=== PATIENT | male | born 1950 | race Caucasian/White ===

== ENCOUNTER → 2018-07-23 10:53 | Outpatient (CLI) | payer MEDICARE, OTHER, SELFPAY ==
--- NOTE | 2018-07-23 | DI.US.S_ITS ---
PROCEDURE: US ABDOMEN COMPLETE INDICATIONS: Abnormal results of liver function studies TECHNIQUE: Real-time scanning was performed of the abdominal and retroperitoneal organs, with image documentation. COMPARISON: None. FINDINGS: Liver: Diffusely echogenic appearance. 1.1 x 0.8 x 0.7 cm septated cystic structure or a closely apposed cysts. Gallbladder: Not well-visualized. Possible gallbladder sludge however technically indeterminate. No definite gallbladder wall thickening. No pericholecystic fluid or sonographic Rodas sign. Biliary ducts: Intrahepatic bile ducts are non-dilated. Extrahepatic bile duct caliber measures 5 mm. Normal is 6-7 mm or less in diameter, or 10 mm or less post-cholecystectomy. Pancreas: Pancreas is not well visualized. Spleen: Spleen is normal in size and homogeneous in echotexture. Kidneys: Kidneys are normal in size and echotexture. Right kidney measures 12.2 cm long; left kidney measures 11.5 cm long. No hydronephrosis or nephrolithiasis. No solid masses. Aorta: Visualized aorta is normal in caliber at less than 3 cm. of the proximal segment is obscured by shadowing bowel gas Iliacs: Proximal common iliac arteries are normal in caliber at less than 2.5 cm. IVC: Intrahepatic inferior vena cava is patent. Miscellaneous: No free abdominal fluid. IMPRESSION: Possible gallbladder sludge although technically indeterminate and limited evaluation. No other sonographic criteria for acute cholecystitis. Coarse echogenic liver suggesting diffuse hepatocellular disease/fatty infiltration. Please correlate with LFTs. Probable septated versus multiple closely apposed small hepatic cysts. Dictated by: James Aguilar M.D. on 07/23/2018 at 12:08 Approved by: James Aguilar M.D. on 07/23/2018 at 12:11
== END ==
PROVIDERS: Visit Provider Physician Assistant
DX: R94.5 Abnormal results of liver function studies (principal)
CPT/HCPCS: 76700

== ENCOUNTER → 2021-10-11 14:54 | Outpatient (CLI) | payer MEDICARE, OTHER, SELFPAY ==
[2021-10-11 16:04] LABS: Add Manual Diff / Slide Review NO; Basophils Absolute Auto 100 /uL (0-100); Basophils Percent Auto 0.8 % (0-2); Eosinophils Absolute Auto 300 /uL (0-450); Eosinophils Percent Auto 4.4 % (2-4); Hemoglobin 13.4 g/dL (13.5-17.5); Lymphocytes Absolute Auto 2500 /uL (1100-4500); Lymphocytes Percent Auto 38.5 % (25-40); Mean Corpuscular HGB Conc 34.3 % (30-36); Mean Corpuscular Hemoglobin 31.2 PG (26-34); Mean Corpuscular Volume 91.1 fL (80-100); Monocytes Absolute Auto 700 /uL (0-900); Monocytes Percent Auto 10.1 % (3-14); Neutrophils Absolute Auto 3000 /uL (1500-7000); Neutrophils Percent Auto 46.2 % (50-75); Platelet Count 155 X10^3/uL (150-400); Red Blood Cell Count 4.28 X10^6/uL (4.5-5.9); Red Cell Distribution Width 13.8 % (11.6-14.8); White Blood Cell Count 6.6 X10^3/uL (4.5-11.0)
[2021-10-11 16:12] LABS: BUN Creatinine Ratio 17.9 (6-22); Blood Urea Nitrogen 17 mg/dL (9-20); Calcium 9.3 mg/dL (8.4-10.2); Carbon Dioxide 28 mmol/L (22-32); Chloride 103 mmol/L (98-107); Estimated Glomerular Filt Rate > 60 mL/min (>60); Glucose 101 mg/dL (80-110); HEMOLYSIS 18 (0-50); Potassium 4.2 mmol/L (3.4-5.1); Sodium 136 mmol/L (137-145)
[2021-10-11 16:37] LABS: Hemoglobin A1C% w Est Avg Glu 5.5 % (4.0-6.0)
== END ==
PROVIDERS: Referring Provider Orthopaedic Surgery; Visit Provider Orthopaedic Surgery
DX: Z01.818 Encounter for other preprocedural examination (principal); R73.9 Hyperglycemia, unspecified; Z01.812 Encounter for preprocedural laboratory examination
CPT/HCPCS: 36415; 80048; 83036; 85025; 93005; 93010

== ENCOUNTER → 2021-10-29 09:57 | Outpatient (CLI) | payer MEDICARE, OTHER, SELFPAY ==
[2021-10-29 11:29] LABS: COVID19 -Nasal RAPID Negative (Negative)
== END ==
PROVIDERS: Referring Provider Orthopaedic Surgery; Visit Provider Orthopaedic Surgery
DX: Z20.822 Contact with and (suspected) exposure to COVID-19 (principal)
CPT/HCPCS: 87635; C9803

== ENCOUNTER 2021-10-31 07:02 | Day surgery (SDC) | payer MEDICARE, OTHER, SELFPAY ==
[2021-10-05 12:50] VITALS: BMI 29.8
[2021-10-31] VITALS (14 sets, daily range): BP systolic 130–152; BP diastolic 70–90; PULSE 58–86; RESP 11–18; TEMP 35.5–36.9; O2SAT 93–99; BMI 29.8
--- NOTE | 2021-10-31 07:30 | DI.RAD.S_ITS ---
PROCEDURE: XR SHOULDER RT 1V INDICATIONS: prosthesis placement TECHNIQUE: Single views of the shoulder were acquired. COMPARISON: None. FINDINGS: Bones: Right humeral hardware replacement. Soft tissues: Postoperative changes are present. Low lung volume. IMPRESSION: Postoperative changes from right shoulder hemiarthroplasty. Dictated by: Jose Cameron M.D. on 10/31/2021 at 16:04 Approved by: Jose Cameron M.D. on 10/31/2021 at 16:05
[2021-10-31] MEDS: LACTATED RINGERS 1,000 ML 42 ML IV (08:28)
--- NOTE | 2021-10-31 11:28 | PM.PREOP ---
Pre-operative Note COVID-19 COVID-19 status: Negative Result date/Date tested (Pos, Neg/Pending): 10/29/21 Interval Note History & Physical reviewed/Exam performed by Physician: Yes Changes to H&P: No
[2021-10-31] MEDS: ACETAMINOPHEN 325 MG TABLET 975 MG PO (13:11)
[2021-10-31] MEDS: CELECOXIB 200 MG CAPSULE PO (13:11)
[2021-10-31] MEDS: PREGABALIN 75 MG CAPSULE PO (13:11)
[2021-10-31] MEDS: TRANEXAMIC ACID 1,000 MG VIAL 1000 MG INJ ×2 (13:52→15:14)
[2021-10-31] MEDS: BUPIVACAINE 0.5% (PF) 30 ML, EPINEPHrine 0.15 MG INJ (14:00)
--- NOTE | 2021-10-31 14:10 | PM.PROC.1 ---
Procedures Date/Time Date of procedure: 10/31/21 Time of procedure: 13:10 General Procedure description: Ultrasound guided interscalene brachial plexus nerve block for post op pain control after right total shoulder arthroplasty by Dr. Treviño. Risk and benefits of procedure discussed with patient. ASA monitoring applied to patient. O2 given via nasal cannula. 2 mg Versed and 50 mcg fentanyl given for procedural sedation. Skin site was prepped with chlorhexidine and allowed to fully dry. Sterile gloves, mask, hat and probe cover were used to maintain sterility. 2% lidocaine and 30ga needle was used to make a small skin wheal at needle insertion site. Under ultrasound guidance, a 21ga 50mm Pajunk needle was directed into the interscalene groove (middle/anterior scalenes) near the brachial plexus. Patient reported no parasthesias. After negative aspiration, 20 mL 0.5% ropivicaine and 10mg dexamethasone were injected around brachial plexus. Patient tolerated procedure well.
--- NOTE | 2021-10-31 14:26 | SUR.OPER ---
Beach chair with Abbe/Michael shoulder positioner. Lower body on padded OR bed. Head in foam padded head cradle, secured with straps. Non-operative arm secured <90 degrees abduction. Pillow under knees. Safety belt at thigh. Cloth tape over blanket over lower legs. POSITION APPROVED BY SURGEON AND ANESTHESIA
--- NOTE | 2021-10-31 15:44 | PM.OP.1 ---
Operative Date/Time/Diagnoses Date of procedure: 10/31/21 Time of procedure: 15:44 Pre-op diagnosis: Right shoulder osteoarthritis Post-op diagnosis: same Procedure & Clinicians Procedure: Right total shoulder replacement Same procedure as scheduled: Yes Indications: The patient has had progressively worsening right shoulder pain with radiographic changes consistent with arthritis. Non-operative management has failed and the patient has requested total shoulder replacement. The risks, benefits and alternatives to surgery were discussed with the patient prior to proceeding. Risks discussed included, but were not limited to, failure to relieve pain, stiffness, infection, nerve damage, deep venous thrombosis, pulmonary embolism, stroke, coma, heart attack, permanent paralysis and , as well as the potential need for eventual revision of the prosthetic. Surgeon: Jovan Treviño Horseshoer: Brittni Martinez Click Yes if Unassisted: No Anesthesia Type: General, Peripheral nerve block and Local Operative Notes Findings: Severe osteoarthritis and large loose body which was removed. Closure Type: primary Specimen(s): none sent Prosthetic devices, grafts, tissues, transplants, or devices: Implants used in this procedure were manufactured by the [email or web address] and included a canal sparing total shoulder replacement with a size 2 stem, a 50 mm pegged all polyethylene E +glenoid and a 50 mm x 18 mm neutral humeral head. Applied: implant(s) Estimated Blood Loss (mL): 100 Blood products transfused: none Procedure in detail: The patient was seen in the pre-operative area, where the patient identified the right shoulder as the operative site and this was marked with my initials. The patient received pre-operative antibiotics, underwent an interscalene block, and was taken to the operating room and placed on the operative table in the supine position. After satisfactory anesthesia, a full ?time out? was performed. The patient was repositioned in the ?beach chair? position using a dedicated positioner. All pressure points were well padded, and the knees were slightly bent to prevent tension on the sciatic nerves. The right arm was prepared from the fingers to the base of the neck with ChloroPrep in the usual fashion and draped through sterile drapes. An approximately 15 cm incision was created, starting at the clavicle above the coracoid process and extended towards the deltoid insertion. The deltopectoral interval was used to access the shoulder. The cephalic vein was taken laterally. A self retaining retractor was placed. The upper centimeter of the pectoralis major tendon was released. The ?three sisters? were identified and cauterized. The axillary nerve was palpated and protected throughout the case. The biceps was released from its groove and tenodesed over the top of the pectoralis major tendon. The subscapularis was released from the lesser tuberosity with a subscapularis tenotomy and tagged for later repair. The shoulder was dislocated and a cutting guide was used for the proximal humeral osteotomy in 30 degrees of retroversion. A humeral head trial was used to place a guide pin in the center of the proximal humerus, this was over reamed with the collared Reamer and a size 2 broach placed. A proximal humeral protector was then placed. We then removed the self-retaining retractor and placed retractors to access the glenoid. The subscapularis was released with a ?360 degree release? with care being taken to protect the axillary nerve with the inferior portion of this procedure. The remnant of labrum and biceps stump were removed. The appropriate size reamer was chosen with the glenoid sizer, and the guide pin placed. The glenoid was appropriately reamed with high side reaming due to a B2 biconcave appearance. The guide for the peripheral holes was used and the center hole enlarged. The trial glenoid was placed with good stability. We then cemented the final implant into place after irrigating the peg holes and drying them with thrombin-soaked Gelfoam. We returned our attention to the humerus, a trial humeral head was applied and a trial reduction performed. Stability was checked with 50% posterior translation with spontaneous reduction, 45? external rotation at the side with the subscapularis held in the repaired position and approximately 70? of internal rotation in the ?[place] position?. This was felt to be satisfactory and the appropriate implants were opened. Five holes were drilled along the humeral osteotomy and #2 Ethibond sutures placed for eventual subscapularis repair. The humeral prosthetic was impacted into the humerus after placing the sutures through the outer ring. The humeral head was applied when the stem was still slightly proud and impacted to both seat the head and fully seat the stem. The joint was relocated one final time. The joint was irrigated and the subscapularis repaired to the previously placed sutures using Ba-Holland sutures. The top of the subscapularis was closed to the leading edge of the supraspinatus with a figure of 8 #2 Ethibond to close the rotator interval. The deltopectoral interval was closed with interrupted 0 Vicryl. The subcutaneous layer was closed with 3-0 Vicryl, and the skin with a running 3-0 V-Lock suture and SteriStrips. An Aquacel Ag dressing was applied, the patient?s arm was placed in a sling, and the patient was taken to recovery having tolerated the procedure well. A skilled assistant hairstylist was necessary for this procedure to proceed expediently. The services of Ms. Martinez made exposure of the glenoid possible for glenoid implantation. Without her assistance the procedure would have taken much longer and would be considerably more difficult. Complications: none Post-operative Condition: stable Disposition: PACU Plan for aftercare: The patient will maintained on a standard total shoulder replacement protocol with passive range of motion in front of his body below shoulder level. He may lift 1-2 lb with his elbow for activities of daily living. He may do pendulum exercises. Will be discharged tomorrow with follow-up in my office in 10-14 days.
--- NOTE | 2021-10-31 16:24 | SUR.PHASEI ---
Pt transferred to room 212 with SBAR report from Sander COOK. Bed in low position, call light in reach, denied pain and any difficulty breathing, tolerating water. Pt transferred with phone, belongings bag and CPAP machine.
[2021-10-31] MEDS: LACTATED RINGERS 1,000 ML 100 ML IV (16:31)
[2021-10-31] MEDS: ACETAMINOPHEN 325 MG TABLET 650 MG PO (17:10)
[2021-10-31] MEDS: IBUPROFEN 400 MG TABLET PO ×2 (17:10→20:25)
[2021-10-31] MEDS: ASPIRIN EC 81 MG TABLET PO (20:25)
[2021-10-31] MEDS: ATORVASTATIN 20 MG TABLET PO (20:25)
[2021-10-31] MEDS: DOCUSATE 100 MG CAPSULE PO (20:25)
--- NOTE | 2021-10-31 21:23 | PC.NURSE ---
Patient is alert and oriented. Breath sounds CTA with RA sat of 96%. HRR. BP trending elevated but stable at 145/71. Denies nausea. BT present and is passing flatus. Able to void at start of shift and denied dysuria. Is able to move self in bed and is out of bed with SBA. Aquacel dressing to right shoulder is CDI; arm is in sling. Entire right UE is numb but has good radial pulse and able to move fingers. Denies pain. Is wearing bilateral calf SCD's. Fall risk score is moderate but patient agreeable to calling for assistance when getting up so alarm is not activated at this time.
[2021-11-01] MEDS: IBUPROFEN 400 MG TABLET PO ×3 (00:30→09:00)
[2021-11-01] MEDS: ACETAMINOPHEN 325 MG TABLET 650 MG PO ×2 (00:30→05:28)
[2021-11-01 04:11] VITALS: BP 134/74; PULSE 80; RESP 18; TEMP 36.1; O2SAT 99
[2021-11-01 06:13] LABS: Hematocrit 36.7 % (41-53); Hemoglobin 12.9 g/dL (13.5-17.5)
[2021-11-01 07:43] VITALS: BP 148/77; PULSE 65; RESP 16; TEMP 36.4; O2SAT 94
--- NOTE | 2021-11-01 08:04 | P.DS_ITS ---
History of Present Illness History of Present Illness Date Patient Seen: 11/01/21 Time Patient Seen: 08:04 Chief complaint: OPB Narrative: Patient is complaining of no right shoulder pain this morning. He is using Tylenol and ibuprofen. He is on aspirin for DVT prophylaxis. His main concern is that his right arm is still numb and tingly. This is resolving somewhat, but is throughout all 5 fingers. Otherwise he is feeling well and would like to be discharged home today. Discharge Providers Provider Discharge Date: 11/01/21 Primary care physician: Doctor George MD Consults: 10/31/21 16:08 Consult to Discharge Planning Routine Comment: Consult to Physical Therapy Evaluate & Treat Comment: Physician Instructions: pendulums, PROM 90 FF, 0 ER, 0 Abd, IR to body Discharge provider: Addie Jackson PA-C Summary Hospital Course Discharge Diagnosis: Right shoulder osteoarthritis Hospital Course: Operative Date/Time/Diagnoses Date of procedure: 10/31/21 Time of procedure: 15:44 Procedure & Clinicians Procedure: Right total shoulder replacement Same procedure as scheduled: Yes Indications: The patient has had progressively worsening right shoulder pain with radiographic changes consistent with arthritis. Non-operative management has failed and the patient has requested total shoulder replacement. The risks, benefits and alternatives to surgery were discussed with the patient prior to proceeding. Risks discussed included, but were not limited to, failure to relieve pain, stiffness, infection, nerve damage, deep venous thrombosis, pulmonary embolism, stroke, coma, heart attack, permanent paralysis and , as well as the potential need for eventual revision of the prosthetic. Surgeon: Jovan Treviño Wire Frame Lamp Shade Maker: Brittni Martinez Click Yes if Unassisted: No Anesthesia Type: General, Peripheral nerve block and Local Operative Notes Findings: Severe osteoarthritis and large loose body which was removed. Closure Type: primary Specimen(s): none sent Prosthetic devices, grafts, tissues, transplants, or devices: Implants used in this procedure were manufactured by the [employer] and included a canal sparing total shoulder replacement with a size 2 stem, a 50 mm pegged all polyethylene E +glenoid and a 50 mm x 18 mm neutral humeral head. Applied: implant(s) Estimated Blood Loss (mL): 100 Blood products transfused: none Status at Discharge Cognitive/behavioral status at discharge: at baseline, oriented Overall status at discharge: patient is progressing back to baseline Exam Vital Signs (past 8 hours): - 11/01/21 04:11 Temperature 97.0 F L Pulse Rate 80 Respiratory Rate 18 Blood Pressure 134/74 Pulse Oximetry 99 Oxygen Flow Rate 0 Oxygen Delivery Method Room Air Oxygen Flow Rate 0 Narrative Exam Narrative: Pleasant 71-year-old male, resting comfortably in bed, no acute distress. Dress ing is clean, dry, intact. Bilateral upper extremity: Generalized decreased sensation in the right upper extremity, clock mechanic strength is 4/5 on the right as compared to left (limited by pain/numbness), right thumb partial amputation, chronic. Objective Labs Result Diagrams: 11/01/21 05:51 Labs: Laboratory Results - last 24 hr 11/01/21 05:51 Hgb 12.9 L Hct 36.7 L PFSH Medical History Anesthesia complication BCC (basal cell carcinoma) GERD (gastroesophageal reflux disease) HLD (hyperlipidemia) Kidney stones Sleep apnea Surgical History H/O vasectomy History of arthroplasty of left knee (12/18/15) History of carpal tunnel repair History of tonsillectomy Hx of appendectomy Hx of elbow surgery Hx of repair of right rotator cuff Social History household members: spouse Smoking Status: Never smoker alcohol intake: current Discharge Assessment & Plan Assessment and Plan Assessment: -stable status post right total shoulder arthroplasty Plan of Treatment: -continue with multimodal pain management. We discussed using oxycodone as home as needed -aspirin 81 mg twice daily x6 weeks for DVT prophylaxis -numbness: Slowly resolving, likely from nerve block -maintain standard total shoulder protocol. -DC home today Discharge Plan Discharge Plan Patient Disposition: Home Discharge orders & Medications Discharge Orders: Discharge (Order); Ordered 11/01/21 Ordered By: Addie Jackson Prescriptions: New acetaminophen 500 mg capsule 500 mg PO Q4H MDD Max 3000 mg per day PRN (Reason: fever or pain) Qty: 90 0RF aspirin 81 mg Tablet,Delayed Release (Dr/Ec) 81 mg PO BID 42 Days Qty: 84 0RF Rx Instructions: Prevent blood clots docusate sodium 100 mg Capsule 100 mg PO BID PRN (Reason: Constipation from narcotic pain meds) Qty: 14 0RF ibuprofen 400 mg Tablet 400 mg PO Q4HR MDD Max 2400 mg per day PRN (Reason: Pain/inflammation) Qty: 90 0RF oxycodone 5 mg Tablet 5 mg PO Q4HR PRN (Reason: Moderate to severe postop pain) Qty: 20 0RF Continued atorvastatin [Lipitor] 20 MG tablet 20 mg PO HS 90 Days Qty: 0 lisinopril-hydrochlorothiazide 20 MG/25 MG tablet 1 tab PO DAILY 90 Days Qty: 0 Discontinued ibuprofen 200 mg Tablet 300 mg PO DAILY PRN (Reason: Pain) Follow up/Referrals: Miscellaneous,Doctor, [Primary Care Provider] - Jovan Treviño MD [Physician] - (10-14 days for postoperative visit) Diet/Activity/Treatments Diet: Diet as Tolerated Other treatments: Medications: -Aspirin 81mg twice daily x6 weeks to prevent blood clots. -OTC Tylenol 500 mg 1 tablet every 4 hours as needed for pain/fever. Max 6 tablets per day. -Ibuprofen 400mg 1 tablet every 4 hours as needed for pain/inflammation. Max 2,400mg per day. -Oxycodone 5 mg take 1-2 tablets every 4 hours as needed for moderate-severe pain (narcotic pain medication). -As needed medications: -Ducolax and /or MiraLax as needed for constipation from narcotic pain medications. -Pepcid AC as needed for stomach upset (usually from aspirin or ibuprofen). Dressing/Wound care: -Keep Aquacell dressing in place until postoperative follow-up office visit. -Okay to shower. Keep wound out of direct water stream. No soaking or submerging until all the scabs fall off (approximately 6 weeks). -Please call the office if dressing becomes wet, soiled, or saturated. Activities: -Maintain standard total shoulder protocol: -OK to use your hand in front of your body, below shoulder level; ok to lift 1-2 lb for the first several weeks. Your activities will be advanced by physical therapy. -Continue with sling. -Continue with home exercises as directed by your physical therapist, including pendulum/codman exercises out of sling. -Ice your incision as needed for pain/inflammation/swelling. Protect your skin with a folded pillowcase. -Incentive Spirometer (breathing device from hospital): 5-10xs every hour while awake for the first 1-2 weeks. Follow-up: -Follow-up with your surgeon or PA in the office in 10-14 days after surgery. -Follow-up with your surgeon 6 weeks postoperatively. Call the office if you have chest pain, shortness of breath, significant swelling that will not resolve with elevating, fever over 101?, significantly worsening pain, or are concerned you might need to go to the Emergency Room. [facility]: [phone] Skin/Wound/Dressing Care Report to your healthcare provider any signs of infection, such as:: chills, fever, night sweats, unusual drainage and unusual redness Visit Report/Discharge Packet Instructions: DI for Shoulder Replacement Stand Alone Forms: Surgery Discharge Discharge Data Primary Care Provider: Miscellaneous,Doctor Attending Provider: Jovan Treviño Quality VTE Deep Vein Thrombosis/Pulmonary Embolism Present on Admission: No
[2021-11-01 09:00] VITALS: BP 148/77; PULSE 68
[2021-11-01] MEDS: hydroCHLOROthiazide 25 MG TABLET PO (09:00)
[2021-11-01] MEDS: lisinopriL 20 MG TABLET PO (09:00)
[2021-11-01] MEDS: ASPIRIN EC 81 MG TABLET PO (09:00)
[2021-11-01] MEDS: DOCUSATE 100 MG CAPSULE PO (09:00)
--- NOTE | 2021-11-01 09:00 | PT.IIE ---
Current Diagnoses Primary osteoarthritis, right shoulder (10/31/21) Surgery Performed Operation Date: 10/31/21 12:30 Actual Procedures p Total Shoulder Arthroplasty(Right) - Jovan Treviño MD Surgical History (Last Reviewed 11/01/21 @ 08:07 by Addie Jackson PA-C) H/O vasectomy History of arthroplasty of left knee (12/18/15) History of carpal tunnel repair History of tonsillectomy Hx of appendectomy Hx of elbow surgery Hx of repair of right rotator cuff Medical History (Last Reviewed 11/01/21 @ 08:07 by Addie Jackson PA-C) Anesthesia complication BCC (basal cell carcinoma) GERD (gastroesophageal reflux disease) HLD (hyperlipidemia) Kidney stones Sleep apnea Physical Therapy Inpatient Evaluation/Re-Eval M1 PT/OT-IP Prior Functional Status Start: 11/01/21 13:04 Freq: NEEDED Status: Active Protocol: Document 11/01/21 09:00 AB (Rec: 11/01/21 13:16 AB [id number]) Medical Review Prior Functional Status Medical History Reviewed Yes Communication able to make needs known Mobility and Gait pt stated that he is independent with all mobilities and ambulation without AD Social History Household Members significant other Living Arrangements House Number of Floors (Floors) Two Floors Number of Stairs To Enter/Railing? pt will stay on the main level of the house Home Environment Standard Height Toilet,Walk in Shower Home Equipment Hand Held Shower,Grab Bars In Shower M2 PT-IP Current Condition Start: 11/01/21 13:04 Freq: NEEDED Status: Active Protocol: Document 11/01/21 09:00 AB (Rec: 11/01/21 13:16 AB [id number]) Physical Therapy Current Condition Current Condition Evaluation Date 11/01/21 Treatment Diagnosis s/p R TSA; difficulty in walking Onset Date 10/31/21 M3 PT-IP Subjective Start: 11/01/21 13:04 Freq: NEEDED Status: Active Protocol: Document 11/01/21 09:00 AB (Rec: 11/01/21 13:16 AB [email or web address]) Subjective Physical Therapy Visit Type Type Initial Evaluation Visit Start Time 09:00 Visit Stop Time 09:36 Total Visit Minutes 36 Number of INDUSTRIAL LABORER Visits 0 Physical Therapy Visit Comments Patient Comments agreeable to do PT M4 PT-IP Mobility and Gait Start: 11/01/21 13:04 Freq: NEEDED Status: Active Protocol: Document 11/01/21 09:00 AB (Rec: 11/01/21 13:16 [id number]) PT-Bed Mobility Assessment Supine to Sit Supine to Sit Standby Assistance PT-Transfer Assessment Sit to and From Stand Sit to and from Stand Standby Assistance,Use of Upper Extremities Equipment Transfer Assistive Device None,Gait Belt Orthotic/Prosthetic Devices or Brace: Yes Transfers Transfer Destination Chair Transfer Technique ambulated Transfer Ability Level of Assist Standby Assistance Comments Mobility Comments educated pt on shoulder precautions, pendulum exercises, elbow/wrist/hand exercises and sling management . pt completed supine to sit SBA . able to sit on EOB SBA. educated on how to don/doff sling and stated that he can inform his GF on how to manage and does not want caregiver training. completed elbow/ wrist/hand exercises. attempted pendulum exercise but only able to assume position but unable to complete exercises as pt tends to move RUE actively from the shoulder. assisted pt on sling. completed ambulation in room without AD ~ 50 ft SBA. presents with antalgic gait but without LOB. pt agreed to sit up on the chair. positioned. call light and table placed within reach . Gait Assessment Gait Gait Assistance Required: Standby Assistance Distance (Feet) 50 Able to Maintain Weight Bearing Status Yes During Gait Assistive Devices Assistive Device None,Gait Belt Orthotic/Prosthetic Devices or Brace: Yes Gait Deviations General Gait Pattern Antalgic,Decreased Stride Length,Decreased Feet Clearance Factors Limiting Gait Function Factors Limiting Gait Function Decreased Activity Tolerance, Decreased Sensation,Decreased Strength,Limited Range of Motion,Poor Balance,Poor Safety Awareness PT-Balance Assessment Sitting Balance and Reactions Static Sitting Balance Ability Normal Dynamic Sitting Balance Ability Normal Standing Balance and Reactions Static Standing Balance Ability Good Dynamic Standing Balance Ability Good Device Used without AD M5 PT-IP Objective Assessments Start: 11/01/21 13:04 Freq: NEEDED Status: Active Protocol: Document 11/01/21 09:00 AB (Rec: 11/01/21 13:16 [email or web address]) Orientation Orientation/Cognition Level of Alertness Alert Orientation Name,Place,Situation Language Function Ability No Deficits Noted Safety Awareness Decreased Safety Awareness Memory Description No Deficits Noted Gross Range of Motion Lower Extremity ROM Assessment Within Functional Limits Strength Lower Extremity Strength Assessment Within Functional Limits Coordination Assessment Gross Coordination Gross Coordination WNL Sensation Assessment Sensation Gross Sensation Right UE Impaired Sensation Description Numbness Comments Sensation Comments pt reports slight numbness on RUE Muscle Tone Muscle Tone WNL Yes M6 PT-IP Treatment Start: 11/01/21 13:04 Freq: NEEDED Status: Active Protocol: Document 11/01/21 09:00 AB (Rec: 11/01/21 13:16 AB [id number]) Physical Therapy Treatment Exercises Exercises Shoulder Pendulums,Elbow Flexion/Extension,Wrist ROM, Hand ROM Education Education Provided Precautions,Weight Bearing Status,Post-Op Packet,Safety M7 PT-IP Assessment and Plan Start: 11/01/21 13:04 Freq: NEEDED Status: Active Protocol: Document 11/01/21 09:00 AB (Rec: 11/01/21 13:16 AB [id number]) PT Summary Assessment and Plan Potential Rehabilitation Potential Good Status of Condition at Evaluation Stable Summary Impairments Pain,ROM,Strength,Balance, Coordination,Sensation,Bed Mobility,Transfers,Gait, Activity Tolerance Assessment Summary pt requiring SBA with mobility and plans to go home with GF to assist him. refused caregiver training and stated that he can inform GF on how to manage sling for him. pt will need outpt PT. Goals Bed Mobility Goal Independent Transfer Goal Independent Gait Goal Independent Gait Distance 200 Days to Meet Goals 3 Frequency of Treatment Frequency Of Treatment Twice a Day Treatment Plan Physical Therapy Treatment Plan Bed Mobility Training,Transfer Training,Gait Training, Therapeutic Exercise,Balance Retraining,Post Op Education, Discharge Planning,Hot or Cold Pack,Neuromuscular Re-ed, Coordination Retraining,Manual Therapy Precautions Shoulder Precautions Sling,PROM,Internal Rotation to Body,No External Rotation, No Abduction,Forward Flexion to 90 degrees,Pendulums Weight Bearing Status Weight Bearing Status Non-Weight Bearing Allowed Weight Bearing Amount (enter % NWB RUE or #) (%) Recommendations To Nursing Amount of Assist Needed Standby Assistance Discharge Recommendations PT Discharge Recommendations Home with Assistance, Outpatient PT Transportation Needs at Discharge Private Vehicle
--- NOTE | 2021-11-01 11:03 | CM.DANOTE ---
DCP Assessment: Payor: Medicare PCP: @ [facility] Pt is a 71 y.o. M who is here for status post day [address] Dr[address] Treviño. Pt has a PMH of HTN, Arthritis, and hyperlipidemia. Pt presented to the outpatient clinic on 10/19 for pre-op appointment. Pt admitted as SDC for evaluation following surgery. DCP met with pt this morning to discuss discharge needs. Pt sitting up in a chair. DCP introduced herself and role. Pt states that he is independent at baseline and lives in [facility] with his girlfriend in a 2 story house. Pt states that he still drives regularly and denies any DME use. Pt states that his girlfriend will pick him up at discharge. Pt states that he will not be driving following surgery until cleared. Pt denies any discharge resources. DCP does not identify any needs at this time. Pt thankful for the discussion. Pt is to discharge today. P: Pt is medically cleared by Ortho and will discharge home today via girlfriend POV. Gisell Villalba RN/NATE Discharge Planning/Care Management Advanced directive, confirm from FAMILY Start: 10/31/21 16:47 Freq: Q24H Status: Active Protocol: Document 10/31/21 16:47 BT (Rec: 10/31/21 16:48 BT [id number]) Advance Directive, confirm on record Time 16:47 Person contacted pt Copy received No CM Discharge Assessment Start: 11/01/21 08:49 Freq: Status: Active Protocol: Document 11/01/21 11:02 [email or web address] (Rec: 11/01/21 11:03 AJ [id number]) Discharge Planning Assessment Assigned License Inspector Gisell Villalba RN/NATE Advance Directives? Yes Advance Directives on File No History Provided By Patient Prior Living Arrangements House Household Members spouse Type of transporation used prior to Drives own vehicle admit Independent with ADL's Yes Is patient alert and oriented? Yes Caregiver for Another No Discharge Plan Home Transportation Arrangement Spouse POV Referrals Initiated None needed Review Status In Process Please Provide Date Initial DC 11/01/21 Assessment Was Performed Next Review Type Continued Stay Review Pre-Anesthesia Assessment Start: 10/05/21 12:49 Freq: Status: Complete Protocol: Document 10/05/21 12:50 CAB (Rec: 10/05/21 13:31 CAB [id number]) Pre-Anesthesia Assessment Patient Information Reviewed Via Phone Assessment Assessment Completed With Patient Comment Will do labs/ECG next week, COVID screen @ 10/29/21 Primary Care Provider Jenny Crow Seen Specialist in Last 12 Months Yes Specialist Seen Orthopedist Primary Language Yemeni Differential Specialist Required No Height 182.88 cm Weight 99.79 kg Body Mass Index (BMI) 29.8 Hearing Ability Normal Visual Impairment No Limitations Visual Assist None Dentition Type Teeth, Natural Present Barriers to Learning None Hx Anesthesia Reactions Yes: Severe pain/swelling of larynx following shoulder surgery Hx Family Anesthesia Reaction No Hx Malignant Hyperthermia No Hx Blood Transfusions No Anesthesia Review Requested No alcohol intake current alcohol intake frequency 0-2 drinks per day Smoking Status Never smoker Substance Use Type marijuana Comment Advised not to smoke marijuana 24 hours prior Musculoskeletal Symptoms Joint Pain,Joint Stiffness, Limited Range of Motion History of Falling (Recent or History of No ) Patient is completely paralyzed or No completely immobile Mental Status Oriented to own ability Is patient on oxygen? No Does patient have LOUIE/SOB No Hx Sleep Apnea Yes CPAP/BIPAP use prescribed and used routinely Will Bring CPAP/BIPAP DOS Yes Currently Taking a Beta [place] No Can You Climb a Flight of Stairs Without No SOB Hx Chest Pain No Hx SOB No Hx Syncope or Dizziness No Anti-Coagulant Therapy No Has a Solution Sales Senior Executive No Cardiac Testing No Hx Pacemaker/ICD No Pacemaker Rep Required? No Cardiac Clearance Received Not Applicable Diet Type At Home Regular dysphagia No Gastrointestinal Symptoms Reflux Urinary Catheter Present No Hx Urinary Self Catheterization No Diabetes No Hx Drug Resistant Organism No Presence of External or Internal Medical Yes: Left knee prosthesis, Devices CPAP Have you had any close contact with No someone diagnosed with COVID-19? Received a COVID vaccine? Yes Received all doses? Yes Marital Status Lives With spouse Prior Living Arrangements House Number of Floors (Floors) Two Floors Support System Spouse Does the Patient Have Assistance After Yes Surgery Patient Discharge Plan Description Return Home Comment Pt not advised on length of stay per surgeon Feels Safe in Current Environment Yes Been Physically Hurt or Threatened By a No Person in Current Environment Do you have thoughts of harming yourself None or others? Are you currently considering suicide? No Do you have a plan to hurt yourself or No Plan others? Do You Have Any Spiritual Beliefs That No May Affect Your HC Choices? Do You Have Any Cultural Practices That No May Affect Your HC Choices? Comment Zoroastrian Who Can We Speak to About Patient's Care Family, friends Identifying Code for Release of Patient Declines to issue Information Health Care Proxy/Next of Kin Rosalba () Health Care Proxy Emergency Contact Name Rosalba () Emergency Contact Advance Directives? No Power of Emulsion Coater Yes Power of Emulsion Coater Name Rosalba () Power of Emulsion Coater PAC Instructions Bring CPAP/BIPAP,Durable medical equipment,Medications to take/avoid,Nasal antibiotic ,No ETOH/petroleum product on skin DOS,Post-op transportation,Pre-surgical wash,Sturdy shoes/comfortable clothes,Do not bring valuables and remove jewelry
== END 2021-11-01 11:19 | disposition home or self-care (01) ==
LOC: OR 07:06 → AC 07:08
PROVIDERS: Referring Provider Orthopaedic Surgery; Visit Provider Orthopaedic Surgery
PROC: 0RQJ0ZZ Repair Right Shoulder Joint, Open Approach (ICD-10-PCS; CPT 23472; principal; 2021-10-31 12:30)
DX: M19.011 Primary osteoarthritis, right shoulder (principal); I10 Essential (primary) hypertension; E78.5 Hyperlipidemia, unspecified; E66.3 Overweight; M24.011 Loose body in right shoulder
CPT/HCPCS: 23472; 36415; 73020; 85014; 85018; 97161; C1776; J0171; J1100; J2250; J2405; J2704; J3010

== ENCOUNTER → 2022-11-18 10:10 | Outpatient (CLI) | payer MEDICARE, SELFPAY ==
[2021-10-31 16:38] VITALS: BMI 29.8
--- NOTE | 2022-11-18 | DI.RAD.S_ITS ---
PROCEDURE: XR LUMBAR SPINE 2-3V INDICATIONS: BACK PAIN TECHNIQUE: 3 views of the lumbar spine were acquired. COMPARISON: None. FINDINGS: Bones: 5 [id number] vertebrae are present. There is trace retrolisthesis of L1 on L2, L2 on L3. Multilevel degenerative disc and foraminal narrowing are present most severe at L4-5, L5-S1. There is mild rightward scoliotic curvature. No vertebral body compression fractures. No suspicious bony lesions. Soft tissues: Overlying bowel gas pattern is normal. No suspicious soft tissue calcifications. IMPRESSION: Multilevel degenerative changes most severe at L4-5, L5-S1. Dictated by: Florence Knight M.D. on 11/18/2022 at 14:54 Approved by: Florence Knight M.D. on 11/18/2022 at 14:54
== END ==
PROVIDERS: PCP Student in an Organized Health Care Education/Training Program; Referring Provider Student in an Organized Health Care Education/Training Program; Visit Provider Student in an Organized Health Care Education/Training Program
DX: M47.816 Spondylosis without myelopathy or radiculopathy, lumbar region (principal); M47.817 Spondylosis without myelopathy or radiculopathy, lumbosacral region; M54.50 Low back pain, unspecified; G89.29 Other chronic pain
CPT/HCPCS: 72100

== ENCOUNTER 2023-02-11 10:17 | Emergency (ER) | payer MEDICARE, SELFPAY ==
[2021-10-31 16:38] VITALS: BMI 29.8
[2023-02-11 10:20] VITALS: BP 155/78; PULSE 70; RESP 18; TEMP 36.4; O2SAT 96; BMI 29.8
--- NOTE | 2023-02-11 10:39 | PC.NURSE ---
Pt presented to the emergency dept today because has been having LLQ pain over the last fews days that has been getting progressively worse. Pt describes pain as cramping and sharp like a gas pain, and abd is tender upon palpation. Pt rates pain as 6/10 and states that he has been having some waves of nausea. Pt is a&ox4. Denies cp or sob. VS WNL.
[2023-02-11 10:44] LABS: Add Manual Diff / Slide Review NO; Basophils Absolute Auto 0 /uL (0-100); Basophils Percent Auto 0.7 % (0-2); Eosinophils Absolute Auto 100 /uL (0-450); Eosinophils Percent Auto 1.5 % (2-4); Hematocrit 40.3 % (41-53); Lymphocytes Absolute Auto 2000 /uL (1100-4500); Mean Corpuscular HGB Conc 34.7 % (30-36); Mean Corpuscular Hemoglobin 31.2 PG (26-34); Mean Corpuscular Volume 90.1 fL (80-100); Monocytes Absolute Auto 400 /uL (0-900); Monocytes Percent Auto 6.7 % (3-14); Neutrophils Absolute Auto 3800 /uL (1500-7000); Neutrophils Percent Auto 60.1 % (50-75); Platelet Count 162 X10^3/uL (150-400); Red Blood Cell Count 4.48 X10^6/uL (4.5-5.9); Red Cell Distribution Width 13.4 % (11.6-14.8); White Blood Cell Count 6.4 X10^3/uL (4.5-11.0)
[2023-02-11 10:53] LABS: Alanine Aminotransferase 47 IU/L (<50); Albumin 4.5 g/dL (3.5-5.0); Albumin Globulin Ratio 1.4 (1.0-2.8); Alkaline Phosphatase 65 U/L (38-126); Aspartate Aminotransferase 58 IU/L (17-59); BUN Creatinine Ratio 16.3 (6-22); Bilirubin Total 0.8 mg/dL (0.2-1.3); Blood Urea Nitrogen 15 mg/dL (9-20); Calcium 9.8 mg/dL (8.4-10.2); Carbon Dioxide 30 mmol/L (22-32); Chloride 98 mmol/L (98-107); Estimated Glomerular Filt Rate > 60 mL/min (>60); Globulin 3.3 g/dL (1.7-4.1); Glucose 106 mg/dL (80-110); HEMOLYSIS < 15 (0-50); Lipase 239 U/L (23-300); Potassium 3.6 mmol/L (3.4-5.1); Sodium 135 mmol/L (137-145); Total Protein 7.8 g/dL (6.3-8.2)
--- NOTE | 2023-02-11 11:19 | ED.ABDPAIN ---
HPI - Abdominal Pain <Rubina Jackson PA-C - Last Filed: 02/11/23 14:57> General Chief Complaint: Abdominal Pain Stated Complaint: flare up diverticulitis Time Seen by Provider: 02/11/23 11:07 Source: patient Mode of arrival: Family Vehicle History of Present Illness HPI narrative: Patient is a 72-year-old male with a history of hypertension who presents with left lower quadrant pain x3 days. He has a history of diverticulitis approximately 4 years ago that resolved after a course of antibiotics. He reports having several colonoscopies since then with benign polyps. Over the past 3 days the pain has gone from being intermittent to being constant. He denies nausea, vomiting, constipation or diarrhea. He has no fever. He has been drinking adequately and eating. The pain is now uncomfortable all the time. He has not taken any pain medications today. Related Data Home Medications Medication Instructions Recorded Confirmed atorvastatin 20 mg tablet (Lipitor) 20 mg PO HS 90 days ##0 05/21/17 10/31/21 lisinopril 20 1 tab PO DAILY 90 days ##0 05/21/17 10/31/21 mg-hydrochlorothiazide 25 mg tablet Previous Rx's Medication Instructions Recorded acetaminophen 500 mg capsule 500 mg PO Q4H PRN fever or pain 11/01/21 #90 caps docusate sodium 100 mg capsule 100 mg PO BID PRN Constipation 11/01/21 from narcotic pain meds #14 caps ibuprofen 800 mg tablet 800 mg PO Q8H PRN pain #30 tabs 12/22/21 omeprazole 20 mg capsule,delayed 20 mg PO DAILY #20 caps 12/22/21 release albuterol sulfate 90 mcg/actuation 2 puff inhalation Q4-6H PRN 02/02/23 aerosol inhaler shortness of breath or wheezing #6.7 grams amoxicillin 875 mg-potassium 1 tab PO BID #16 tabs 02/11/23 clavulanate 125 mg tablet Allergies Allergy/AdvReac Type Severity Reaction Status Date / Time No Known Drug Allergies Allergy Verified 02/11/23 10:31 Review of Systems <Rubina Jackson PA-C - Last Filed: 02/11/23 14:57> Review of Systems ROS Unobtainable: All systems reviewed & are unremarkable except as noted in HPI and below Patient History <Rubina Jackson PA-C - Last Filed: 02/11/23 14:57> Medical History HLD (hyperlipidemia) Anesthesia complication Sleep apnea Kidney stones GERD (gastroesophageal reflux disease) BCC (basal cell carcinoma) Surgical History H/O vasectomy Hx of appendectomy Hx of repair of right rotator cuff Hx of elbow surgery History of arthroplasty of left knee (12/18/15) History of tonsillectomy History of carpal tunnel repair Social History household members: spouse Smoking Status: Former smoker alcohol intake: current Smoking Status: Former smoker alcohol intake frequency: 0-2 drinks per day Alcohol type: wine Substance Use Type: marijuana Exam <Rubina Jackson PA-C - Last Filed: 02/11/23 14:57> Narrative Exam Narrative: GENERAL: 72 year old patient appears stated age. Well-developed patient, in no distress. NEURO: AOx3. HEAD: Atraumatic. Normocephalic. EYES: Pupils equal round and reactive. Extraocular motions intact. No scleral icterus. No injection or drainage. ENT: Nose without bleeding or purulent drainage. Airway patent. CARDIOVASCULAR: Regular rate and rhythm without murmurs, gallops, or rubs. RESPIRATORY: Clear to auscultation. Breath sounds equal bilaterally. No wheezes, rales, or rhonchi. GASTROINTESTINAL: active bowel tones. Abdomen soft, no tenderness in the right upper left lower quadrants. Mild tenderness in the left upper and significant tenderness to palpation in the left lower quadrant. No peritoneal signs. EXTREMITIES: No edema or joint tenderness. SKIN: No rash or erythema of visible areas Initial Vital Signs Initial Vital Signs: Vital Signs Temperature 97.5 F L 02/11/23 10:20 Pulse Rate 70 02/11/23 10:20 Respiratory Rate 18 02/11/23 10:20 Blood Pressure 155/78 H 02/11/23 10:20 Pulse Oximetry 96 02/11/23 10:20 Oxygen Delivery Method Room Air 02/11/23 10:20 <Lorena Yañez DO - Last Filed: 02/12/23 09:32> Initial Vital Signs Initial Vital Signs: Vital Signs Temperature 97.5 F L 02/11/23 10:20 Pulse Rate 70 02/11/23 10:20 Respiratory Rate 18 02/11/23 10:20 Blood Pressure 155/78 H 02/11/23 10:20 Pulse Oximetry 96 02/11/23 10:20 Oxygen Delivery Method Room Air 02/11/23 10:20 Course <Rubina Jackson PA-C - Last Filed: 02/11/23 14:57> Orders Ordered: Discontinued Medications Ketorolac Tromethamine (Ketorolac 30 Mg/Ml Vial) 15 mg IV NOW ONE Stop: 02/11/23 11:19 Last Admin: 02/11/23 11:25 Dose: 15 mg Documented By: HENRY Lidocaine/Prilocaine (Lidocaine/Prilocaine 5 Gm) 5 gm TOP NOW ONE Stop: 02/11/23 11:41 Last Admin: 02/11/23 11:44 Dose: Not Given Documented By: WALLY Ondansetron HCl (Ondansetron 4 Mg/2 Ml Inj) 4 mg IV NOW PRN PRN Reason: Nausea And Vomiting Ondansetron HCl (Ondansetron 4 Mg Odt) 4 mg PO NOW PRN PRN Reason: Nausea And Vomiting Vital Signs Vital signs: Vital Signs - 8 hr 02/11/23 10:20 02/11/23 12:33 Temperature 97.5 F L Pulse Rate 70 54 L Respiratory Rate 18 16 Blood Pressure 155/78 H 145/67 H Pulse Oximetry 96 98 Oxygen Delivery Method Room Air Room Air <Lorena Yañez, - Last Filed: 02/12/23 09:32> Orders Ordered: Discontinued Medications Ketorolac Tromethamine (Ketorolac 30 Mg/Ml Vial) 15 mg IV NOW ONE Stop: 02/11/23 11:19 Last Admin: 02/11/23 11:25 Dose: 15 mg Documented By: HENRY Lidocaine/Prilocaine (Lidocaine/Prilocaine 5 Gm) 5 gm TOP NOW ONE Stop: 02/11/23 11:41 Last Admin: 02/11/23 11:44 Dose: Not Given Documented By: RLS Ondansetron HCl (Ondansetron 4 Mg/2 Ml Inj) 4 mg IV NOW PRN PRN Reason: Nausea And Vomiting Ondansetron HCl (Ondansetron 4 Mg Odt) 4 mg PO NOW PRN PRN Reason: Nausea And Vomiting Vital Signs Vital signs: Vital Signs - 8 hr 02/11/23 10:20 02/11/23 12:33 Temperature 97.5 F L Pulse Rate 70 54 L Respiratory Rate 18 16 Blood Pressure 155/78 H 145/67 H Pulse Oximetry 96 98 Oxygen Delivery Method Room Air Room Air MDM - Abdominal Pain <Rubina Jackson PA-C - Last Filed: 02/11/23 14:57> Lab Data 02/11/23 10:34 02/11/23 10:34 Labs: Lab Results 02/11/23 02/11/23 Range/Units 10:34 11:58 WBC 6.4 (4.5-11.0) X10^3/uL RBC 4.48 L (4.5-5.9) X10^6/uL Hgb 14.0 (13.5-17.5) g/dL Hct 40.3 L (41-53) % MCV 90.1 (80-100) fL MCH 31.2 (26-34) PG MCHC 34.7 (30-36) % RDW 13.4 (11.6-14.8) % Plt Count 162 (150-400) X10^3/uL Neut % (Auto) 60.1 (50-75) % Lymph % (Auto) 31.0 (25-40) % [place] % (Auto) 6.7 (3-14) % Eos % (Auto) 1.5 L (2-4) % Baso % (Auto) 0.7 (0-2) % Neut # (Auto) 3800 (2327-2667) /uL Lymph # (Auto) 2000 (8942-0137) /uL [place] # (Auto) 400 (0-900) /uL Eos # (Auto) 100 (0-450) /uL Baso # (Auto) 0 (0-100) /uL Sodium 135 L (137-145) mmol/L Potassium 3.6 (3.4-5.1) mmol/L Chloride 98 (98-107) mmol/L Carbon Dioxide 30 (22-32) mmol/L BUN 15 (9-20) mg/dL Creatinine 0.92 (0.66-1.25) mg/dL Estimated GFR > 60 (>60) mL/min BUN/Creatinine Ratio 16.3 (6-22) Glucose 106 (80-110) mg/dL Calcium 9.8 (8.4-10.2) mg/dL Total Bilirubin 0.8 (0.2-1.3) mg/dL AST 58 (17-59) IU/L ALT 47 (<50) IU/L Alkaline Phosphatase 65 (38-126) U/L Total Protein 7.8 (6.3-8.2) g/dL Albumin 4.5 (3.5-5.0) g/dL Globulin 3.3 (1.7-4.1) g/dL Albumin/Globulin Ratio 1.4 (1.0-2.8) Lipase 239 (23-300) U/L Urine Color Yellow Urine Appearance Clear Urine pH 7.0 (4.5-8.0) Ur Specific [place] 1.010 (1.000-1.035) Urine Protein Negative (Negative) Urine Glucose (UA) Negative (Negative) g/dL Urine Ketones Negative (NEGATIVE) Urine Occult Blood Negative (Negative) Urine Nitrate Negative (Negative) Urine Bilirubin Negative (NEGATIVE) Urine Urobilinogen 0.2 (0.2) E.U./dL Ur Leukocyte Esterase Negative (NEGATIVE) Urine RBC None seen (0-5/HPF) Urine WBC 0-1/hpf (0-5/HPF) Ur Squamous Epith Cells None seen (0-5/HPF) Urine Bacteria None seen (None) Ur Culture Indicated? Cult not indicated Imaging Data CT scan - abdomen/pelvis: Radiologist's Impression: PROCEDURE: CT ABDOMEN PELVIS W CON INDICATIONS: LLQ tenderness x3 days, suspect diverticulitis TECHNIQUE: After the administration of intravenous contrast, axial sections acquired from the lung bases to the pubic symphysis. Coronal and sagittal reformats were performed. For radiation dose reduction, the following was used: automated exposure control, adjustment of mA and/or kV according to patient size. COMPARISON: None. FINDINGS: Lower thorax: The lung bases are clear. Heart size normal. No hiatal hernia. Liver: Normal in size and attenuation. No contour deformity present. Small right hepatic subcentimeter hypodensity, likely cyst. Biliary system: No calcified cholelithiasis or pericholecystic inflammation. No intra or extrahepatic bile duct dilatation. Pancreas: Unremarkable without mass or inflammation evident. Spleen: Normal in size and density. Adrenals: Normal morphology and density. Reproductive system: Prostate is enlarged at 4.6 x 6.6 cm Urinary system: No hydronephrosis. Small nonobstructing 5 mm left renal calculus present. Urinary bladder cysts and to level of the umbilicus. Gastrointestinal system: Multiple diverticula arise from the descending colon, and there is pericolonic inflammatory change in distal descending colon. No abscess or free air. No obstruction. Appendix: No findings to suggest acute appendicitis. Peritoneal spaces: No mesenteric or retroperitoneal adenopathy. No free air. No free fluid. Vasculature: The IVC, aorta and iliac vasculature are unremarkable. Abdominal wall: Bilateral inguinal hernia(s) contain fat without bowel involvement. Small periumbilical hernia Musculoskeletal: Normal bone mineralization. Degenerative disc disease and arthropathy noted in lower lumbar spine. No acute fractures. IMPRESSION: 1. Mild focal diverticulitis involving the distal left colon. No abscess, perforation or obstruction. 2. Prostate hypertrophy urinary bladder distension Approved by: Maksim Walker M.D. on 02/11/2023 at 11:12 MDM Narrative Medical decision making narrative: Multiple etiologies for patient's symptoms considered including, but not limited to: Diverticulitis, diverticulitis with complications such as perforation or abscess, pancreatitis, appendicitis, colitis, UTI, pyelonephritis. Patient has a history of diverticulitis and feels this is very similar. He is well-appearing with significant left lower quadrant tenderness. His labs are without evidence of leukocytosis, lipase is within normal limits. We will obtain CT to evaluate for diverticulitis and possible complications. If this is an uncomplicated diverticulitis, we will treat with a course of Augmentin and close follow-up. Chart review shows he was seen in the walk-in clinic on 02/02/2023 and diagnosed with sinusitis and prescribed a 10 day course of Augmentin. Patient reports he took this medication for 3 days but then started having the left lower quadrant abdominal pain, so he stopped taking the antibiotic, thinking it might be causing the pain. He reports he is still having sinus congestion. CT shows mild diverticulitis without perforation or abscess as well as prostatomegaly with urinary retention. Discussed findings with the patient. We will start a 10 day course of Augmentin for diverticulitis. Advised to follow up with PCP regarding prostate. Patient's symptoms improved over duration of stay with above-stated therapies. Findings and discharge diagnosis discussed with patient/family followed by verbalization of understanding Return precautions discussed with patient/family whom verbalize understanding of diagnosis and plan <Lorena Yañez, DO - Last Filed: 02/12/23 09:32> Lab Data Labs: Lab Results 02/11/23 02/11/23 Range/Units 10:34 11:58 WBC 6.4 (4.5-11.0) X10^3/uL RBC 4.48 L (4.5-5.9) X10^6/uL Hgb 14.0 (13.5-17.5) g/dL Hct 40.3 L (41-53) % MCV 90.1 (80-100) fL MCH 31.2 (26-34) PG MCHC 34.7 (30-36) % RDW 13.4 (11.6-14.8) % Plt Count 162 (150-400) X10^3/uL Neut % (Auto) 60.1 (50-75) % Lymph % (Auto) 31.0 (25-40) % [place] % (Auto) 6.7 (3-14) % Eos % (Auto) 1.5 L (2-4) % Baso % (Auto) 0.7 (0-2) % Neut # (Auto) 3800 (8423-3788) /uL Lymph # (Auto) 2000 (1036-4567) /uL [place] # (Auto) 400 (0-900) /uL Eos # (Auto) 100 (0-450) /uL Baso # (Auto) 0 (0-100) /uL Sodium 135 L (137-145) mmol/L Potassium 3.6 (3.4-5.1) mmol/L Chloride 98 (98-107) mmol/L Carbon Dioxide 30 (22-32) mmol/L BUN 15 (9-20) mg/dL Creatinine 0.92 (0.66-1.25) mg/dL Estimated GFR > 60 (>60) mL/min BUN/Creatinine Ratio 16.3 (6-22) Glucose 106 (80-110) mg/dL Calcium 9.8 (8.4-10.2) mg/dL Total Bilirubin 0.8 (0.2-1.3) mg/dL AST 58 (17-59) IU/L ALT 47 (<50) IU/L Alkaline Phosphatase 65 (38-126) U/L Total Protein 7.8 (6.3-8.2) g/dL Albumin 4.5 (3.5-5.0) g/dL Globulin 3.3 (1.7-4.1) g/dL Albumin/Globulin Ratio 1.4 (1.0-2.8) Lipase 239 (23-300) U/L Urine Color Yellow Urine Appearance Clear Urine pH 7.0 (4.5-8.0) Ur Specific [place] 1.010 (1.000-1.035) Urine Protein Negative (Negative) Urine Glucose (UA) Negative (Negative) g/dL Urine Ketones Negative (NEGATIVE) Urine Occult Blood Negative (Negative) Urine Nitrate Negative (Negative) Urine Bilirubin Negative (NEGATIVE) Urine Urobilinogen 0.2 (0.2) E.U./dL Ur Leukocyte Esterase Negative (NEGATIVE) Urine RBC None seen (0-5/HPF) Urine WBC 0-1/hpf (0-5/HPF) Ur Squamous Epith Cells None seen (0-5/HPF) Urine Bacteria None seen (None) Ur Culture Indicated? Cult not indicated Discharge Plan Departure Patient Disposition: Home Clinical Impression: Diverticulitis Instructions: DI for Diverticulitis Activity Restrictions/Additional Instructions: *You have been diagnosed with uncomplicated diverticulitis. I and prescribing Augmentin, an antibiotic use to treat abdominal infections. You already have some Augmentin left at home from your sinusitis treatment, so I will prescribe an abbreviated course. Altogether you should take this medication for 10 days. If your symptoms get worse, such as fever, severe abdominal pain, intractable vomiting, you should return to the emergency room for reassessment. If your disease improves over time and you feel better after taking the course of antibiotics, please follow-up with your primary care. As we discussed, your prostate does appear enlarged on the CT today. This may be benign but I would discuss with your primary care in regards to further surveillance. *What to do: *Please continue to take your regular medications as directed. [x ] New medication prescriptions sent to your pharmacy: [facility] [ ] New medication written as a paper prescription [ ] No new medications given *Please follow up with your primary care provider in 2-3 days, call for an appointment. Let them know you were seen in the Emergency Department and that we ask that you be seen in follow up. We will electronically transmit a record of today's note if your PCP is in our system *If you do not have a primary care provider please contact the [facility] Resource line at [phone]. They will ask some questions about your medical history and help get you set up with a doctor in the community. *Return to Emergency Department if you should have any new, worsening or concerning symptoms, such as [fever greater than 101 F, shaking chills, worsening pain, persistent vomiting or other concerning symptoms]. Prescriptions: New amoxicillin-pot clavulanate 875-125 mg tablet 1 tab PO BID Qty: 16 0RF Discontinued amoxicillin-pot clavulanate 875-125 mg tablet 1 tab PO BID 10 Days Qty: 20 0RF benzonatate 100 mg capsule 100 mg PO TID PRN (Reason: cough) Qty: 20 0RF ibuprofen 400 mg Tablet 400 mg PO Q4HR MDD Max 2400 mg per day PRN (Reason: Pain/inflammation) Qty: 90 0RF oxycodone 5 mg Tablet 5 mg PO Q4HR PRN (Reason: Moderate to severe postop pain) Qty: 20 0RF No Action albuterol sulfate 90 mcg/actuation HFA aerosol inhaler 2 puff inhalation Q4-6H PRN (Reason: shortness of breath or wheezing) Qty: 6.7 0RF omeprazole 20 mg capsule,delayed release(DR/EC) 20 mg PO DAILY Qty: 20 0RF ibuprofen 800 mg tablet 800 mg PO Q8H PRN (Reason: pain) Qty: 30 0RF Rx Instructions: Take with food and water atorvastatin [Lipitor] 20 MG tablet 20 mg PO HS 90 Days Qty: 0 lisinopril-hydrochlorothiazide 20 MG/25 MG tablet 1 tab PO DAILY 90 Days Qty: 0 acetaminophen 500 mg capsule 500 mg PO Q4H MDD Max 3000 mg per day PRN (Reason: fever or pain) Qty: 90 0RF docusate sodium 100 mg Capsule 100 mg PO BID PRN (Reason: Constipation from narcotic pain meds) Qty: 14 0RF Referrals: Jenny Crow PA-C [Primary Care Provider] - Stand Alone Forms: Patient Portal/API ED Sign-out <Lorena Yañez, - Last Filed: 02/12/23 09:32> Cosign ED Attending Cosignature Attestation: I was immediately available in the department for consultation.
[2023-02-11] MEDS: KETOROLAC 30 MG/ML VIAL 15 MG IV (11:25)
[2023-02-11 12:08] LABS: Appearance Urine UA CLEAR; Bilirubin Urine UA NEGATIVE (NEGATIVE); Color Urine UA YELLOW; Glucose Urine UA NEGATIVE (Negative); Ketones Urine UA NEGATIVE (NEGATIVE); Leukocyte Esterase Urine UA NEGATIVE (NEGATIVE); Nitrite Urine UA NEGATIVE (Negative); Occult Blood Urine UA NEGATIVE (Negative); Protein Urine UA NEGATIVE (Negative); Urobilinogen Urine UA 0.2 E.U./dL (0.2)
[2023-02-11 12:15] LABS: Bacteria Urine None Seen; Culture Indicated Urine Cult Not Indicated; RBC Urine None Seen (0-5/HPF); Squamous Epithelial Cell Urine None Seen (0-5/HPF); WBC Urine 0-1/HPF (0-5/HPF)
[2023-02-11 12:33] VITALS: BP 145/67; PULSE 54; RESP 16; O2SAT 98
== END 2023-02-11 12:40 | disposition home or self-care (01) ==
PROVIDERS: Emergency Medicine; Emergency Provider Physician Assistant; PCP Student in an Organized Health Care Education/Training Program
DX: K57.32 Diverticulitis of large intestine without perforation or abscess without bleeding (principal); I10 Essential (primary) hypertension; Z87.891 Personal history of nicotine dependence
CPT/HCPCS: 36415; 74177; 80053; 81001; 83690; 85025; 93005; 93010; 96374; 99284; J1885; Q9967

== ENCOUNTER → 2023-07-28 12:47 | Outpatient (CLI) | payer MEDICARE, SELFPAY ==
[2021-10-31 16:38] VITALS: BMI 29.8
--- NOTE | 2023-07-28 12:49 | DI.MRI.S_ITS ---
PROCEDURE: MR KNEE RT WO CON INDICATIONS: RIGHT KNEE PAIN TECHNIQUE: Noncontrast sagittal PD fast spin echo and T2 fast spin echo with fat saturation, sagittal 3-D FLASH with fat saturation; coronal T1 spin echo and PD fast spin echo with fat saturation, and axial PD fast spin echo with fat saturation through the knee. COMPARISON: None. FINDINGS: Image quality: Excellent. Menisci: In the medial meniscus, there is a complex tear of the posterior horn, with predominantly horizontal oblique component, extending to the meniscus body. There is a small meniscus flap extending from the meniscus body into the inferior gutter. No significant extrusion of the medial meniscus body. The lateral meniscus is unremarkable. Cruciate ligaments: The anterior and posterior cruciate ligaments appear intact. Medial structures: The medial collateral ligament appears intact. The posterior oblique ligament, semimembranosus tendon insertions, oblique popliteal ligament, and meniscocapsular junction appear intact. Visualized portions of the pes anserinus tendons appear normal. No abnormal bursal fluid. Lateral structures: The lateral collateral ligament, long and short heads of the biceps femoris tendon appear intact. The popliteus tendon appears normal; the popliteofibular ligament appears intact. The posterosuperior and anteroinferior popliteomeniscal fascicles appear intact. The arcuate and fabellofibular ligaments appear intact, on either side of the lateral inferior geniculate artery. Iliotibial band appears normal. Anterior structures: The quadriceps and patellar tendons appear intact. Patellar alignment is normal. No femoral trochlear dysplasia or ventral trochlear prominence. No edema in the infrapatellar fat pad. Bones and cartilage: There is a large area of full-thickness chondral denudation involving the median ridge, extending into the medial facet of the patella, with mild subchondral marrow edema. Multifocal high-grade chondral irregularity in the lateral patella facet. Large area full-thickness chondral denudation in the medial trochlea with mild subchondral marrow edema. High-grade chondral loss of the central trochlea. Cartilage of the lateral trochlea is unremarkable. In the medial compartment, there is mild chondral thinning in the weight-bearing portion of the medial femoral condyle. Cartilage of the lateral compartment is well maintained. There is mild cystic changes with marrow edema about the tibial eminence, favor reactive. No acute fracture. Joint space: Small knee effusion. No popliteal cyst. Popliteal vasculature is unremarkable. IMPRESSION: 1. Complex tear of the medial meniscus with a small meniscus flap. 2. Moderate, patellofemoral compartment predominant chondrosis. Dictated by: Radha Navas M.D. on 07/28/2023 at 13:35 Approved by: Radha Navas M.D. on 07/28/2023 at 13:47
== END ==
PROVIDERS: PCP Student in an Organized Health Care Education/Training Program; Referring Provider Orthopaedic Surgery Foot and Ankle Surgery; Visit Provider Orthopaedic Surgery Foot and Ankle Surgery
DX: S83.231A Complex tear of medial meniscus, current injury, right knee, initial encounter (principal); M22.41 Chondromalacia patellae, right knee; M25.561 Pain in right knee
CPT/HCPCS: 73721